=== PATIENT | female | born 1945 | race Caucasian/White ===

== ENCOUNTER → 2017-01-21 | Outpatient (CLI) | payer MEDICARE, OTHER ==
[~2017-01-21] MED LIST: ASPIRIN EC81 MG PO
== END ==
LOC: US 09:18
DX: C50.419 Malignant neoplasm of upper-outer quadrant of unspecified female breast (principal)
CPT/HCPCS: 76641-LT

== ENCOUNTER 2017-02-25 11:33 | Emergency (ER) | payer MEDICARE, OTHER ==
[2017-02-25 12:45] LABS: RED BLOOD COUNT 4.24 M/UL (4.00-5.10); WHITE BLOOD COUNT 8.1 K/UL (4.5-11.0)
== END 2017-02-25 16:12 | disposition home or self-care (01) ==
LOC: ER1 11:33
PROVIDERS: Family Medicine
DX: R06.02 Shortness of breath (principal); I25.10 Atherosclerotic heart disease of native coronary artery without angina pectoris; I50.9 Heart failure, unspecified; Z87.891 Personal history of nicotine dependence
CPT/HCPCS: 36415; 80053; 82550; 82553; 83874; 84484; 85025; 93005; 99285; J7040; J7050; Q9963

== ENCOUNTER → 2017-02-28 | Outpatient (CLI) | payer MEDICARE, OTHER | LOC: MAMO 09:10 | DX: C50.919 Malignant neoplasm of unspecified site of unspecified female breast (principal); N63 Unspecified lump in breast; N64.4 Mastodynia; Z98.890 Other specified postprocedural states; Z90.710 Acquired absence of both cervix and uterus | CPT/HCPCS: G0204 ==

== ENCOUNTER 2021-07-28 01:12 | Observation (INO) | payer MEDICARE, OTHER ==
[~2021-07-28] VITALS: Ht 170.2 cm; Wt 77.1 kg
[2021-07-28 02:22] LABS: HEMOGLOBIN 13.2 gm/dl (12.3-15.3); RED BLOOD COUNT 4.31 M/UL (4.00-5.10); WHITE BLOOD COUNT 9.7 K/UL (4.5-11.0)
[2021-07-28] MEDS ORDERED: FISH OIL 1,0001 EACH PO (04:34)
[2021-07-28] MEDS ORDERED: TOPROL XL 50 MG50 MG PO (04:35)
[2021-07-28] MEDS ORDERED: MAGNESIUM400 M2 PO (04:36)
[2021-07-28] MEDS ORDERED: ELIQUIS5 MG PO (04:36)
[2021-07-28] MEDS ORDERED: NITRO-DUR1 EACH TOP (04:40)
[2021-07-28] MEDS ORDERED: ZETIA10 MG PO (04:41)
[2021-07-28] MEDS ORDERED: METFORMIN HCL1000 MG PO (04:41)
[2021-07-28] MEDS ORDERED: COZAAR50 MG PO (04:41)
[2021-07-28] MEDS ORDERED: NORVASC5 MG PO (04:42)
[2021-07-28] MEDS ORDERED: PROTONIX40 MG PO (04:42)
[2021-07-28] MEDS ORDERED: HYDROCHLOROTHIA25 MG PO (04:42)
== END 2021-07-28 14:56 | disposition home or self-care (01) ==
LOC: ER1 01:12 → CDU 03:56 → M/S 03:56
PROVIDERS: Physician Assistant Medical; ADMIT Internal Medicine
DX: R07.89 Other chest pain (principal); I48.20 Chronic atrial fibrillation, unspecified; E11.9 Type 2 diabetes mellitus without complications; I25.10 Atherosclerotic heart disease of native coronary artery without angina pectoris; I10 Essential (primary) hypertension; E78.5 Hyperlipidemia, unspecified; K21.9 Gastro-esophageal reflux disease without esophagitis; Z95.1 Presence of aortocoronary bypass graft; Z95.5 Presence of coronary angioplasty implant and graft; Z90.10 Acquired absence of unspecified breast and nipple; Z88.8 Allergy status to other drugs, medicaments and biological substances; Z79.01 Long term (current) use of anticoagulants; Z79.84 Long term (current) use of oral hypoglycemic drugs; Z79.4 Long term (current) use of insulin; Z20.822 Contact with and (suspected) exposure to COVID-19
CPT/HCPCS: 36415; 71045; 80053; 82550; 82553; 82962; 83605; 83874; 83880; 84484; 85025; 85610; 86850; 86900; 86901; 87040; 93005; G0378; J1885; U0002

== ENCOUNTER → 2022-01-14 | Outpatient (CLI) | payer MEDICARE, OTHER ==
[~2022-01-14] VITALS: Ht 170.2 cm; Wt 78.9 kg
[~2022-01-14] MED LIST changes: +COZAAR50 MG PO; +ELIQUIS5 MG PO; +FISH OIL 1,0001 EACH PO; +HYDROCHLOROTHIA25 MG PO; +MAGNESIUM400 M2 PO; +METFORMIN HCL1000 MG PO; +NITRO-DUR1 EACH TOP; +NORVASC5 MG PO; +PROTONIX40 MG PO; +TOPROL XL 50 MG50 MG PO; +ZETIA10 MG PO
== END | disposition home or self-care (01) ==
LOC: OPSV 06:24
DX: M72.0 Palmar fascial fibromatosis [Dupuytren] (principal)
CPT/HCPCS: J0775